=== PATIENT | male | born 2000 | race African-American/Black ===

== ENCOUNTER 2023-08-24 06:31 | Emergency (ER) | payer MEDICAID ==
[~2023-08-24] VITALS: Ht 182.9 cm; Wt 65.0 kg
[2023-08-24 11:47] VITALS: BP 165/77; PULSE 90; RESP 18; TEMP 98.7; O2SAT 96
== END 2023-08-25 07:12 | disposition left against medical advice (07) ==
LOC: EDBD 06:31 → ER 06:31
DX: G93.41 Metabolic encephalopathy (principal); R41.82 Altered mental status, unspecified; F12.10 Cannabis abuse, uncomplicated